=== PATIENT | female | born 1985 | race Caucasian/White ===

== ENCOUNTER 2023-03-15 12:16 | Emergency (ER) | payer SELFPAY ==
[2023-03-15 12:43] VITALS: BP 133/78; PULSE 70; RESP 18; TEMP 36.6; O2SAT 99; BMI 25.4
--- NOTE | 2023-03-15 14:17 | US_ITS ---
WS: [id number] US OB lmt with transvaginal HISTORY: threatened miscarriage COMPARISON: None available. Uterus is retroverted. There is a small amount of debris extending along the endocervical canal. Ther e is an intrauterine gestational sac which contains a yolk sac. Sac measures 2.7 cm consistent with a gestation of 8 weeks and 0 days. There is soft tissue within the gestational sac. This may be an abn ormal yolk sac. No pole is definitely identified. This could be at the pole. There is no cardiac activity. Ovaries contain numerous small follicles. No mass. IMPRESSION: 1. No definite pole or cardiac activity is identified. 2. Intrauterine gestational sac corresponds to a gestation of 8 weeks and 0 days. At this gestational age an intrauterine gestation with cardiac activity should be present. 3. Suspect anembryonic gestation or missed AB.
--- NOTE | 2023-03-15 14:18 | W.ED.PREGNAN ---
HPI - General: Chief complaint: Vaginal Bleeding Stated complaint: spotting, 13 weeks preg Time Seen by Provider: 03/15/23 13:45 Source: patient Mode of arrival: ambulatory Limitations: no limitations History of Present Illness: 37-year-old female states she is currently 12 to 13 weeks she believes she has had 6 previous pregnancies with no difficulties states that over the last week she has had some vaginal spotting she denies passing any clots denies any pain but states she has had just a continuous mild spotting. She denies any worsening proving factors she states she just moved here and has not had any OB care. Associated symptoms: Deny abdominal pain, dysuria, headache(s), nausea or vomiting Review of Systems Const: Denies: fever(s), chills, body aches or change in appetite ENMT: Denies: throat pain or dental pain Card: Denies: chest pain Resp: Denies: dyspnea GI: Denies: abdominal pain, nausea, vomiting or diarrhea : Reports: vaginal bleeding; Denies: dysuria Musc: Denies: neck pain or back pain Skin/Breast: Denies: rash Neuro: Denies: headache(s) Physical Exam Const: COMMON NORMALS: no acute distress, patient oriented x3 and healthy appearing HENMT: COMMON NORMALS: normocephalic and atraumatic HEAD & SCALP: normocephalic and atraumatic Eye: COMMON NORMALS: Equal, round and reactive pupils present and EOMs intact bilaterally PUPIL: Yes Equal, round and reactive pupils present Neck/C-Spine: COMMON NORMALS: full ROM and supple Chest: COMMONS NORMALS: normal inspection of the chest Resp: COMMON NORMALS: normal respiratory effort Cardio: COMMON NORMALS: regular rate, regular rhythm and No murmurs present (Cardio) RATE: regular rate RHYTHM: regular rhythm GI: COMMON NORMALS: Normal to inspection, nondistended, normoactive bowel sounds present, Soft to palpation, non-tender and no masses PALPATION: Yes Soft to palpation Extremity: COMMON NORMALS: normal to inspection and full ROM Neuro: COMMON NORMALS: patient oriented x3, moves all extremities and no focal motor deficits Psych: COMMON NORMALS: mental status grossly normal, Normal thought process present and cooperative THOUGHT PROCESS: Normal thought process present Skin: COMMON NORMALS: no rashes or lesions noted and no wounds GENERAL SKIN EXAM: no rashes or lesions noted Course Vital Signs: Vital signs: Vital Signs Temperature 97.9 F 03/15/23 12:43 Pulse Rate 74 03/15/23 14:47 Respiratory Rate 14 03/15/23 14:47 Blood Pressure 127/86 03/15/23 14:47 Pulse Oximetry 99 03/15/23 14:47 Oxygen Delivery Me thod Room Air 03/15/23 14:47 MDM - OB/Uterine Contractions Medical Decision Making Patient presents here with a threatened miscarriage ultrasound showed either demise or blighted ovum she has had minimal bleeding here did inform her of ultrasound results we will get her follow-up with OB she is return if worsening Medical Records I reviewed the patient's medical records. Lab Data I reviewed the patient's lab results. Laboratory Results Ser , Semi-Qnt 4491.00 mIU/mL 03/15/23 13:34 Urine Color Yellow (Yellow) 03/15/23 15:13 Urine Appearance Clear (CLEAR) 03/15/23 15:13 Urine pH 6.5 (5-7) 03/15/23 15:13 Ur Specific [place] 1.015 (1.005-1.030) 03/15/23 15:13 Urine Protein Neg (Negative) 03/15/23 15:13 Urine Glucose (UA) Norm (Normal) 03/15/23 15:13 Urine Ketones Negative (Negative) 03/15/23 15:13 Urine Blood Neg (Negative) 03/15/23 15:13 Urine Nitrate Negative (Negative) 03/15/23 15:13 Urine Bilirubin Neg (Negative) 03/15/23 15:13 Urine Urobilinogen Norm mg/dL (Negative) 03/15/23 15:13 Ur Leukocyte Esterase Negative (Negative) 03/15/23 15:13 Blood Type B Positive 03/15/23 13:34 Rho(D) Type Rh positive 03/15/23 13:34 Antibody Screen Negative 03/15/23 13:34 All radiology interpretation(s) finalized by discharge Discharge Plan Discharge Patient Disposition: Home Clinical Impression: Threatened miscarriage Condition: Stable Prescriptions: No Action No Known Home Medications Discharge Orders: Discharge ED (Routine); Ordered 03/15/23 Ordered By: Gunjan Kan Referrals: Domingo Powell MD [Physician] - 1-3 days Discharge Diet: Advance as tolerated Discharge Activity: Resume usual activity Patient Instructions: Threatened Miscarriage (ED) Coding Level of Care Code ED Dairy Clerk for [facility]ega
[2023-03-15 14:47] VITALS: BP 127/86; PULSE 74; RESP 14; O2SAT 99
[2023-03-15 15:26] LABS: Add Urine Microscopic? NO; Charge for UA Resulting for Rev
[2023-03-15 15:39] LABS: Bilirubin Urine Neg (Negative); Blood Urine Neg (Negative); Glucose Urine UA Norm (Normal); Ketones Urine Negative (Negative); Leukocyte Esterase Urine Negative (Negative); Nitrate Urine Negative (Negative); Protein Urine Neg (Negative); Specific Gravity, Urine 1.015 (1.005-1.030); Urine Appearance Clear (CLEAR); Urine Color Yellow (Yellow); Urobilinogen Urine Norm (Negative); pH Urine 6.5 (5-7)
[2023-03-15 16:01] VITALS: BP 127/86; PULSE 74; RESP 14; O2SAT 99
--- NOTE | 2023-03-15 18:13 | DCPLANNER ---
Referral was sent to Dr. Powell office on 03/15 at 1112. Clinic will contact patient.
== END 2023-03-15 16:02 | disposition home or self-care (01) ==
PROVIDERS: Emergency Provider Emergency Medicine
DX: O20.0 Threatened abortion (principal); Z3A.13 13 weeks gestation of pregnancy
CPT/HCPCS: 36415; 76815; 76817; 81003; 84702; 86850; 86900; 99284